=== PATIENT | male | born 1935 | race Caucasian/White ===

== ENCOUNTER 2021-11-21 10:40 | Emergency (ER) | payer BC, MEDICARE, OTHER ==
[~2021-11-21] VITALS: Ht 165.1 cm; Wt 70.8 kg
[~2021-11-21 10:40] MED LIST: AMLO-213; ATORVASTATIN 40 MG TABLET; CARV3.122; LISI-768
--- NOTE | 2021-11-21 11:10 | NUR ---
IV ESTABLISHED L 20G. LABS DRAWN AND SENT. CONVERTED TO SALINE LOCK.
--- NOTE | 2021-11-21 11:19 | NUR ---
URINE COLLECTED AND SENT
--- NOTE | 2021-11-21 11:30 | NUR ---
PT CAME TO ER C/O CONSTIPATION X 3 MONTHS. PT REPORTS LAXATIVES HAVE NOT HELPED. AAOX4, BREATHING EVEN AND UNLABORED, PULSES 2+ BILATERALLY. ON MONITOR.
--- NOTE | 2021-11-21 11:46 | NUR ---
EDGAR [phone]
[2021-11-21 12:09] LABS: BASOPHILS % (AUTO) 0.5 % (0.0-2.0); EOSINOPHILS % (AUTO) 6.9 % (0.0-6.0); HEMATOCRIT 38 % (39-51); HEMOGLOBIN 12.1 g/dL (13.5-17.5); LYMPHOCYTES # (AUTO) 2.4 K/uL (0.8-4.8); LYMPHOCYTES % (AUTO) 29.5 % (20.0-44.0); MEAN CORPUSCULAR HGB CONC 32 g/dl (31.0-36.0); MEAN CORPUSCULAR VOLUME 84 fL (80-96); MONOCYTES # (AUTO) 0.7 K/uL (0.1-1.30); MONOCYTES % (AUTO) 9.2 % (2.0-12.0); NEUTROPHILS # (AUTO) 4.3 K/uL (1.8-8.9); NEUTROPHILS % (AUTO) 53.9 % (43.0-81.0); PLATELET COUNT (AUTO) 276 K/uL (150-450); RED BLOOD CELL COUNT(AUTO) 4.45 MIL/uL (4.5-6.0); WHITE BLOOD COUNT (AUTO) 8.1 K/uL (4.3-11.0)
[2021-11-21 12:48] LABS: BILIRUBIN,URINE NEGATIVE (NEGATIVE); COLOR,URINE YELLOW (YELLOW); LEUKOCYTE ESTERASE ,URINE NEGATIVE (NEGATIVE); NITRITE, URINE NEGATIVE (NEGATIVE); PROTEIN,URINE 100 mg/dl (NEGATIVE); UGLUCOSE >=1000 mg/dL (NEGATIVE)
[2021-11-21 13:18] LABS: CALCIUM, SERUM 8.8 mg/dL (8.5-10.1); CREATININE 1.3 mg/dL (0.6-1.3); POTASSIUM 4.6 mmol/L (3.5-5.1)
[2021-11-21 13:21] LABS: RBC,URINE 0-3 /HPF (0-2)
[2021-11-21 13:22] LABS: BACTERIA,URINE Rare /HPF (None Seen); SQUAMOUS EPITHELIAL CELL,UR Rare /HPF (None Seen); WBC,URINE 0-2 /HPF (0-3)
[2021-11-21] MEDS ORDERED: DOCU-141 PO (13:52)
[2021-11-21] MEDS ORDERED: POLY17PO4 PO (13:52)
--- NOTE | 2021-11-21 13:59 | NUR ---
Patient discharged to home in stable condition. Written and verbal after care instructions given. Patient verbalizes understanding of instruction. IV removed. Catheter intact and site benign. Pressure and 4x4 applied to site. No bleeding noted.
[2021-11-21 14:01] VITALS: BP 180/88
[2021-11-21 21:13] LABS: BILIRUBIN,DIRECT 0.2 mg/dL (0.0-0.2); BILIRUBIN,TOTAL 0.5 mg/dL (0.2-1.0)
[2021-11-21 21:14] LABS: ALBUMIN 3.1 g/dL (3.4-5.0); TOTAL PROTEIN, SERUM 7.5 g/dL (6.4-8.2)
== END 2021-11-21 14:01 | disposition home or self-care (01) ==
LOC: ER 10:45
DX: K59.00 Constipation, unspecified (principal); I25.2 Old myocardial infarction; Z86.73 Personal history of transient ischemic attack (TIA), and cerebral infarction without residual deficits; Z79.1 Long term (current) use of non-steroidal anti-inflammatories (NSAID); Z79.899 Other long term (current) drug therapy
CPT/HCPCS: 36415; 80048-TC; 80076-TC; 81001; 83690-TC; 85025-TC